=== PATIENT | male | born 1980 | race American Indian/Alaskan Native ===

== ENCOUNTER 2017-06-01 12:47 | Emergency (ER) | payer MEDICAID ==
--- NOTE | 2017-06-01 14:44 | RAD ---
PROCEDURE: Radiographs of the Lumbar Spine. HISTORY: Acute left lower back pain. h/o chronic back pain. COMPARISON: Lumbar lumbar spine radiographs performed 08/14/14 FINDINGS: BONES: Alignment appears satisfactory. No listhesis. No acute displaced fracture identified. DISC SPACES: Unremarkable. OTHER FINDINGS: None. IMPRESSION: No acute displaced fracture or subluxation identified.
--- NOTE | 2017-06-01 14:49 | C.PDOC ---
History Of Present Illness Pt c/o left lower back pain that was exacerbated yesterday after lifting a cooler. Time Seen by Provider: 06/01/17 13:15 Chief Complaint (Nursing): Back Pain History Per: Patient Onset/Duration Of Symptoms: Worse Since (yesterday) Current Symptoms Are (Timing): Still Present Quality Of Discomfort: "Pain" Severity: Moderate Previous Symptoms: Back Pain, Chronic Pain, Prior Injury Associated Symptoms: None Exacerbating Factor(s): Movement Additional History Per: Prior Records Past Medical History Reviewed: Historical Data, Nursing Documentation, Vital Signs Vital Signs: Last Vital Signs Temp 98 F 06/01/17 12:56 Pulse 90 06/01/17 12:56 Resp 20 06/01/17 12:56 BP 106/71 06/01/17 12:56 Pulse Ox 96 06/01/17 12:56 - Medical History PMH: Asthma, Back Problems - [facility] Procedures REPLAC M/S IMMOB DEV NEC (08/14/14) Family History: States: Unknown Family Hx - Social History Hx Tobacco Use: No Hx Alcohol Use: No Hx Substance Use: No - Immunization History Hx Tetanus Toxoid Vaccination: No Hx Influenza Vaccination: No Hx Pneumococcal Vaccination: No Review Of Systems Except As Marked, All Systems Reviewed And Found Negative. Constitutional: Negative for: Fever, Weakness Cardiovascular: Negative for: Chest Pain Respiratory: Negative for: Shortness of Breath Gastrointestinal: Negative for: Vomiting, Abdominal Pain Genitourinary: Negative for: Dysuria, Incontinence, Hematuria Musculoskeletal: Positive for: Back Pain. Negative for: Neck Pain Skin: Negative for: Rash Neurological: Negative for: Weakness, Numbness, Seizures, Altered Mental Status Physical Exam - Physical Exam Appears: Non-toxic, No Acute Distress Skin: Normal Color, Warm, Dry, No Rash Head: Atraumatic, Normacephalic Eye(s): bilateral: PERRL, EOMI Neck: Normal ROM, Supple Cardiovascular: Rhythm Regular Respiratory: Normal Breath Sounds, No Accessory Muscle Use Gastrointestinal/Abdominal: Soft, No Tenderness, No Mass Back: No CVA Tenderness, No Vertebral Tenderness, Paraspinal Tenderness (left) Extremity: Normal ROM, No Deformity Neurological/Psych: Oriented x3, Normal Motor, Normal Sensation ED Course And Treatment O2 Sat by Pulse Oximetry: 96 Pulse Ox Interpretation: Normal - Other Rad LS spine x-rays X-Ray: Viewed By Me, Read By Radiologist Interpretation: IMPRESSION: No acute displaced fracture or subluxation identified. Reassessment Condition: Improved Disposition Counseled Patient/Family Regarding: Studies Performed, Diagnosis, Need For Followup, Rx Given - Disposition Referrals: Anil Barnes MD [Medical Doctor] - Disposition: HOME/ ROUTINE Disposition Time: 14:50 Condition: IMPROVED Additional Instructions: Follow up with your doctor for further evaluation and treatment. Return to the ER if you develop weakness, numbness, abdominal pain, trouble urinating, worsening of symptoms or if you have any other concerns. Prescriptions: Naproxen [Naprosyn] 1 tab PO BID PRN #20 tab PRN Reason: Pain Instructions: Back Pain (ED) Forms: [facility] (Kiswahili) - Clinical Impression Clinical Impression: Left low back pain
[2017-06-01 14:56] VITALS: BP 111/69; PULSE 67; RESP 18; TEMP 98; O2SAT 99
== END 2017-06-01 14:57 | disposition home or self-care (01) ==
LOC: C.ER 12:47
DX: M54.5 Low back pain (principal)
CPT/HCPCS: 72100; 96372; 99283; J1885

== ENCOUNTER 2018-03-29 04:38 | Emergency (ER) | payer MEDICAID ==
[2018-03-29] MEDS ORDERED: Lidocaine 5% Patch TD STA (05:04)
[2018-03-29] MEDS ORDERED: Lidocaine 5% Patch TD ONE (05:20)
--- NOTE | 2018-03-29 05:40 | C.PDOC ---
History Of Present Illness 37 year old male presents to the ED c/o left shoulder pain that started 3-4 days ago. 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 Patient reports now pain is present while he sleeps. Patient states he has never had shoulder pain before. Patient denies injury, fall, trauma, CP, SOB , weakness, numbness. Time Seen by Provider: 03/29/18 04:49 Chief Complaint (Nursing): Upper Extremity Problem/Injury History Per: Patient History/Exam Limitations: no limitations Onset/Duration Of Symptoms: Days Current Symptoms Are (Timing): Still Present Quality: "Pain" Severity: Mild Exacerbating Factor(s): Strenuous Use Of Affected Area, Movement Recent travel outside of the [place]: No Additional History Per: Patient Past Medical History Reviewed: Historical Data, Nursing Documentation, Vital Signs Vital Signs: Last Vital Signs Temp 97.6 F 03/29/18 04:41 Pulse 64 03/29/18 04:41 Resp 16 03/29/18 04:41 BP 101/64 03/29/18 04:41 Pulse Ox 98 03/29/18 05:41 - Medical History PMH: Asthma, Back Problems Surgical History: No Surg Hx - [facility] Procedures REPLAC M/S IMMOB DEV NEC (08/14/14) Family History: States: Unknown Family Hx - Social History Hx Tobacco Use: No Hx Alcohol Use: Yes Hx Substance Use: No - Immunization History Hx Tetanus Toxoid Vaccination: No Hx Influenza Vaccination: No Hx Pneumococcal Vaccination: No Review Of Systems Constitutional: Negative for: Fever, Chills Cardiovascular: Negative for: Chest Pain Respiratory: Negative for: Shortness of Breath Gastrointestinal: Negative for: Nausea, Vomiting Musculoskeletal: Positive for: Shoulder Pain Skin: Negative for: Rash Neurological: Negative for: Weakness, Numbness Physical Exam - Physical Exam Appears: Non-toxic, No Acute Distress Skin: Normal Color, Warm, Dry Head: Atraumatic, Normacephalic Eye(s): bilateral: Normal Inspection Oral Mucosa: Moist Neck: Normal ROM, Supple Chest: Symmetrical Cardiovascular: Rhythm Regular, No Murmur Respiratory: Normal Breath Sounds, No Rales, No Rhonchi, No Wheezing Gastrointestinal/Abdominal: Soft, No Tenderness, No Guarding, No Rebound Extremity: Normal ROM, Tenderness (to palpation of left anterior shoulder. no erytehma, wamrth), Capillary Refill (< 2 seconds), No Swelling Extremity: Bilateral: Atraumatic Pulses: Left Radial: Normal, Right Radial: Normal Neurological/Psych: Oriented x3, Normal Speech, Normal Motor, Normal Sensation Gait: Steady ED Course And Treatment O2 Sat by Pulse Oximetry: 98 (ON RA) Pulse Ox Interpretation: Normal - Other Rad Left shoulder X-RAy X-Ray: Interpreted by Me, Viewed By Me Interpretation: No fracture or dislocation Progress Note: Plan: - Lidoderm patch. - toradol 60 mg IM. Patient was referred to ortho for further follow up. Patient is stable for D/C. Disposition - Disposition Referrals: Meredith Castanon MD [Staff Provider] - Disposition: HOME/ ROUTINE Disposition Time: 05:34 Condition: STABLE Additional Instructions: Follow up with Orthopedist within 2-3 days. Return to ED if feel worse. 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 - Scribe Statement The provider has reviewed the documentation as recorded by the Scribe Juventino Dos Santos All medical record entries made by the Scribe were at my direction and personally dictated by me. I have reviewed the chart and agree that the record accurately reflects my personal performance of the history, physical exam, medical decision making, and the department course for this patient. I have also personally directed, reviewed, and agree with the discharge instructions and disposition.
[2018-03-29 05:54] VITALS: BP 118/74; PULSE 60; RESP 18; TEMP 98
[2018-03-29 06:09] VITALS: O2SAT 98
--- NOTE | 2018-03-29 09:08 | RAD ---
PROCEDURE: Radiographs of the Left Shoulder HISTORY: pain COMPARISON: No prior. FINDINGS: BONES: No acute fracture or destructive bony lesion identified. JOINTS: Degenerative changes seen the glenohumeral and acromioclavicular joints. No subluxation or dislocation apparent. SOFT TISSUES: Normal. OTHER FINDINGS: None. IMPRESSION: No acute fracture or dislocation. degenerative changes as discussed above.
== END 2018-03-29 05:57 | disposition home or self-care (01) ==
LOC: C.ER 04:38
DX: M25.512 Pain in left shoulder (principal)
CPT/HCPCS: 73030; 96372; 99284; J1885

== ENCOUNTER 2018-04-08 11:28 | Emergency (ER) | payer MEDICAID ==
[2018-04-08 11:46] VITALS: BP 131/81; PULSE 68; RESP 18; TEMP 98.2; O2SAT 100
--- NOTE | 2018-04-08 15:08 | C.PDOC ---
History Of Present Illness 37 y/o male presents to the ED complaining of left shoulder pain for 1 month. Seen here 1 month ago for the same complaint, given prescriptions, but did not follow up with the clinic or any doctor. Patient denies any trauma or re- injury. No chest pain or SOB. Time Seen by Provider: 04/08/18 12:31 Chief Complaint (Nursing): Upper Extremity Problem/Injury History Per: Patient History/Exam Limitations: no limitations Onset/Duration Of Symptoms: Days Current Symptoms Are (Timing): Still Present Past Medical History Reviewed: Historical Data, Nursing Documentation, Vital Signs Vital Signs: Last Vital Signs Temp 98.2 F 04/08/18 11:44 Pulse 68 04/08/18 11:44 Resp 18 04/08/18 11:44 BP 131/81 04/08/18 11:44 Pulse Ox 100 04/08/18 15:11 - Medical History PMH: Asthma, Back Problems - [facility] Procedures REPLAC M/S IMMOB DEV NEC (08/14/14) Family History: States: Unknown Family Hx - Social History Hx Tobacco Use: No Hx Alcohol Use: Yes Hx Substance Use: No - Immunization History Hx Tetanus Toxoid Vaccination: No Hx Influenza Vaccination: No Hx Pneumococcal Vaccination: No Review Of Systems Except As Marked, All Systems Reviewed And Found Negative. Cardiovascular: Negative for: Chest Pain Respiratory: Negative for: Shortness of Breath Musculoskeletal: Positive for: Shoulder Pain Neurological: Negative for: Weakness, Numbness Physical Exam - Physical Exam Appears: Non-toxic, No Acute Distress Skin: Normal Color, Warm, Dry Head: Atraumatic, Normacephalic Eye(s): bilateral: Normal Inspection, PERRL, EOMI Nose: Normal Oral Mucosa: Moist Neck: Normal ROM, Supple Chest: Symmetrical Respiratory: No Accessory Muscle Use Extremity: Normal ROM, Tenderness (point tenderness to the left anterior shoulder), Capillary Refill (less than 2 sec), No Deformity, No Swelling Pulses: Left Radial: Normal, Right Radial: Normal Neurological/Psych: Oriented x3, Normal Speech, Normal Motor, Normal Sensation ED Course And Treatment O2 Sat by Pulse Oximetry: 100 (RA) Pulse Ox Interpretation: Normal Medical Decision Making Medical Decision Making: Impression: Shoulder pain Plan: --60 mg IM Toradol Counseled patient regarding diagnosis of shoulder sprain. Will discharge patient home with prescription for Tramadol. Patient verbalizes understanding of treatment plan and the need for outpatient follow up. Disposition Counseled Patient/Family Regarding: Diagnosis, Need For Followup, Rx Given - Disposition Referrals: Kolby Gaytan III, MD [Staff Provider] - Disposition: HOME/ ROUTINE Disposition Time: 12:25 Condition: STABLE Additional Instructions: RENATA WASHINGTON, thank you for letting us take care of you today. Your provider was Tyler Knowles DO and you were treated for LEFT SHOULDER PAIN. The emergency medical care you received today was directed at your acute symptoms. If you were prescribed any medication, please fill it and take as directed. It may take several days for your symptoms to resolve. Return to the Emergency Department if your symptoms worsen, do not improve, or if you have any other problems. Please contact your doctor or call one of the physicians/clinics you have been referred to that are listed on the Patient Visit Information form that is included in your discharge packet. Bring any paperwork you were given at discharge with you along with any medications you are taking to your follow up visit. Our treatment cannot replace ongoing medical care by a primary care provider outside of the emergency department. Thank you for allowing the [facility] team to be part of your care today. Follow up with your primary care doctor or the orthopedic doctor in 1-2 days for re-evaluation and further management. Prescriptions: traMADol [Ultram] 50 mg PO Q8 PRN #15 tab PRN Reason: Pain, Severe (8-10) Instructions: Shoulder Sprain (DC) Forms: [facility] (Ghanaian) - POA Present On Arrival: None - Clinical Impression Clinical Impression: Shoulder sprain - Scribe Statement The provider has reviewed the documentation as recorded by the Scribe (Smitha Hinson) Provider Attestation: All medical record entries made by the Scribe were at my direction and personally dictated by me. I have reviewed the chart and agree that the record accurately reflects my personal performance of the history, physical exam, medical decision making, and the department course for this patient. I have also personally directed, reviewed, and agree with the discharge instructions and disposition.
== END 2018-04-08 12:50 | disposition home or self-care (01) ==
LOC: C.ER 11:28
DX: S43.402A Unspecified sprain of left shoulder joint, initial encounter (principal); X58.XXXA Exposure to other specified factors, initial encounter
CPT/HCPCS: 96372; 99283; J1885

== ENCOUNTER 2018-04-24 19:09 | Emergency (ER) | payer MEDICAID ==
[2018-04-24 19:19] VITALS: BP 121/77; PULSE 94; RESP 16; TEMP 98.5; O2SAT 97
--- NOTE | 2018-04-24 20:00 | C.PDOC ---
History Of Present Illness 37 y/o male presents to the ED complaining of swelling to his left jaw, underneath riggs, which he noticed today. States he found the lump there when applying a lotion to the riggs. When pressing on the area, patient noted some purulent drainage. Also reports the area is painful to touch. Otherwise no fever or chills. Time Seen by Provider: 04/24/18 19:35 Chief Complaint (Nursing): Abnormal Skin Integrity History Per: Patient History/Exam Limitations: no limitations Onset/Duration Of Symptoms: Days (x1) Current Symptoms Are (Timing): Still Present Past Medical History Reviewed: Historical Data, Nursing Documentation, Vital Signs Vital Signs: Last Vital Signs Temp 98.5 F 04/24/18 19:15 Pulse 94 H 04/24/18 19:15 Resp 16 04/24/18 19:15 BP 121/77 04/24/18 19:15 Pulse Ox 97 04/24/18 21:37 - Medical History PMH: Asthma, Back Problems - [facility] Procedures REPLAC M/S IMMOB DEV NEC (08/14/14) Family History: States: Unknown Family Hx - Social History Hx Tobacco Use: No Hx Alcohol Use: Yes Hx Substance Use: Yes - Immunization History Hx Tetanus Toxoid Vaccination: No Hx Influenza Vaccination: No Hx Pneumococcal Vaccination: No Review Of Systems Except As Marked, All Systems Reviewed And Found Negative. Constitutional: Negative for: Fever, Chills Skin: Positive for: Other (swelling to left jaw) Physical Exam - Physical Exam Appears: Non-toxic, No Acute Distress Skin: Warm, Dry, Other (folliculitis noted to left side of jaw underneath riggs ; one portion is draining scant purulent drainage, no abscess or fluctuance) Head: Atraumatic, Normacephalic Eye(s): bilateral: Normal Inspection, PERRL, EOMI Nose: Normal Oral Mucosa: Moist Neck: Normal ROM, Supple Chest: Symmetrical Respiratory: No Accessory Muscle Use, Other (speaking in full sentences) Neurological/Psych: Oriented x3, Normal Speech ED Course And Treatment O2 Sat by Pulse Oximetry: 97 (RA) Pulse Ox Interpretation: Normal Progress Note: Swab sent for wound culture. Bactroban cream applied to affected area. Patient treated with PO Clindamycin in the ED. Will discharge home with rx for Bactroban ointment and oral Clindamycin. Patient advised to follow up with PMD, and return immediately for any new or worsening symptoms Disposition Counseled Patient/Family Regarding: Diagnosis, Need For Followup, Rx Given - Disposition Disposition: HOME/ ROUTINE Disposition Time: 20:00 Condition: GOOD Additional Instructions: Follow up with your PMD within 1-2 days. return to ED if feel worse. Wound check in 2-3 days. Prescriptions: Mupirocin 2% Ointment [Bactroban Ointment] 1 appl TP TID 7 Days #1 tube Clindamycin [Cleocin] 300 mg PO Q6 #28 cap Instructions: Folliculitis (DC) Forms: [employer] (South African) - POA Present On Arrival: None - Clinical Impression Clinical Impression: Folliculitis - PA / REFRIGERATING TECHNICIAN / Resident Statement MD/DO has reviewed & agrees with the documentation as recorded. - Scribe Statement The provider has reviewed the documentation as recorded by the Scribe (Smitha Hinson) All medical record entries made by the Scribe were at my direction and personally dictated by me. I have reviewed the chart and agree that the record accurately reflects my personal performance of the history, physical exam, medical decision making, and the department course for this patient. I have also personally directed, reviewed, and agree with the discharge instructions and disposition.
== END 2018-04-24 20:21 | disposition home or self-care (01) ==
LOC: C.ER 19:09
DX: L73.9 Follicular disorder, unspecified (principal)